=== PATIENT | male | born 1940 | race Caucasian/White ===

== ENCOUNTER 2017-04-09 07:02 | Day surgery (SDC) | payer MEDICARE ==
[~2017-04-09] VITALS: Ht 175.3 cm; Wt 88.5 kg
[~2017-04-09 07:02] MED LIST: AMLO10TA2 PO; AMLO5TAB2 PO; ANDROGEL TP; ASPI-515 PO; ASPI-621 PO; ATOR40TA PO; ATOR40TA78 PO; CEPH-368 PO; CHOL4PAC11 PO; CIPR500T87 PO; CLOP75TA22 PO; DOCU-30 PO; FEBU40TA PO; FURO-93 PO; HYDR-3144 PO; LEVO750T26 PO; LISI-167 PO; LISI-170 PO; LISI40TA PO; MELO-190 PO; METO25TA35 PO/NG; MULT-516 PO; OXYC-302 PO; POTA10TA11 PO; POTA20TA14 PO; TAMS-11 PO; TAMS0.4C2 PO; TEST1.25 TP; VERA80TA2 PO; VITAMIN D3
[2017-04-09] MEDS ORDERED: LACTATED RINGERS 1,000 ML IV SCH (07:44)
[2017-04-09 07:48] VITALS: BP 147/83
[2017-04-09] MEDS ORDERED: MIDAZOLAM 1 MG/ML, 2ML ONE (08:49)
[2017-04-09] MEDS ORDERED: FENTANYL PF 250 MCG/5ML ONE (08:49)
[2017-04-09] MEDS ORDERED: ONDANSETRON 2MG/ML, 2ML ONE (09:52)
[2017-04-09] MEDS ORDERED: DEXAMETHASONE 4 MG/ML, 1ML ONE (09:52)
[2017-04-09] MEDS ORDERED: CEFAZOLIN 1,000 MG ONE (09:52)
[2017-04-09] MEDS ORDERED: OMNIPAQUE 350 MG/ML, 50 ML BOTTLE IV ONE (10:12)
[2017-04-09] MEDS ORDERED: ONDANSETRON 2MG/ML, 2ML IVPush PRN (10:30)
[2017-04-09] MEDS ORDERED: HYDROmorphone 1 MG/ML, 1ML IV PRN (10:30)
[2017-04-09] MEDS ORDERED: LABETALOL 5MG/ML, 20ML IV PRN (10:30)
[2017-04-09] MEDS ORDERED: MEPERIDINE/PF 25MG/0.5ML IVPush PRN (10:30)
[2017-04-09] MEDS ORDERED: FENTANYL PF 100 MCG/2ML IV PRN (10:30)
[2017-04-09] MEDS ORDERED: ALBUTEROL/IPRATROPIUM 2.5MG/0.5MG, 3 ML NPPB PRN (10:30)
[2017-04-09] MEDS ORDERED: MIDAZOLAM 1 MG/ML, 2ML IV PRN (10:30)
[2017-04-09] MEDS ORDERED: ACETAMINOPHEN 325 MG TABLET PO PRN (10:30)
[2017-04-09] MEDS ORDERED: OXYcodone 5 MG/5 ML ORAL.SOL UDC PO PRN (10:30)
[2017-04-09] MEDS ORDERED: PHENAZOPYRIDINE 200 MG TABLET ONE (10:43)
[2017-04-09] MEDS ORDERED: OMNIPAQUE 350 MG/ML, 50 ML BOTTLE ONE (10:54)
[2017-04-09] MEDS ORDERED: PHENAZOPYRIDINE 200 MG TABLET PO ONE (11:00)
[2017-04-09] MEDS ORDERED: LISINOPRIL 20 MG TABLET PO ONE (12:00)
[2017-04-09] MEDS ORDERED: hydrALAzine 20 MG/ML, 1ML ONE (13:00)
[2017-04-09] MEDS ORDERED: hydrALAzine 20 MG/ML, 1ML IV ONE ×2 (13:00→14:00)
== END 2017-04-09 15:00 ==
LOC: OUT 07:02
PROVIDERS: ATTEND Urology
DX: Z85.528 Personal history of other malignant neoplasm of kidney (principal); I12.9 Hypertensive chronic kidney disease with stage 1 through stage 4 chronic kidney disease, or unspecified chronic kidney disease; N18.9 Chronic kidney disease, unspecified; N40.0 Benign prostatic hyperplasia without lower urinary tract symptoms; I25.10 Atherosclerotic heart disease of native coronary artery without angina pectoris; Z85.54 Personal history of malignant neoplasm of ureter; Z95.1 Presence of aortocoronary bypass graft; Z98.890 Other specified postprocedural states; Z88.1 Allergy status to other antibiotic agents; Z88.0 Allergy status to penicillin; Z88.8 Allergy status to other drugs, medicaments and biological substances
CPT/HCPCS: 52005; 74420; C1769; J0360; J0690; J1100; J2405; J3010; J7120; Q9967; J2250

== ENCOUNTER → 2017-10-28 | Outpatient (CLI) | payer MEDICARE ==
[~2017-10-28] MED LIST changes: +CARV6.2512 PO; -CLOP75TA22 PO; +CLOP75TA52 PO; +DOCU-131 PO; -DOCU-30 PO; -HYDR-3144 PO; +HYDR-3245 PO; -MELO-190 PO; +MELO7.5T31 PO
== END | disposition home or self-care (01) ==
LOC: CFH 13:31
PROVIDERS: ATTEND Urology
DX: N26.1 Atrophy of kidney (terminal) (principal); N28.1 Cyst of kidney, acquired; I51.7 Cardiomegaly; Z85.528 Personal history of other malignant neoplasm of kidney
CPT/HCPCS: 71046; 76770

== ENCOUNTER → 2018-04-15 | Outpatient (CLI) | payer MEDICARE | END | disposition home or self-care (01) | LOC: CFH 16:29 | PROVIDERS: ATTEND Urology | DX: C66.2 Malignant neoplasm of left ureter (principal); C67.8 Malignant neoplasm of overlapping sites of bladder; C64.9 Malignant neoplasm of unspecified kidney, except renal pelvis; M51.34 Other intervertebral disc degeneration, thoracic region; N28.1 Cyst of kidney, acquired; N32.89 Other specified disorders of bladder | CPT/HCPCS: 71046; 76770 ==

== ENCOUNTER → 2018-09-23 | Outpatient (CLI) | payer MEDICARE ==
[~2018-09-23] MED LIST changes: +AMLO-150 PO; -AMLO10TA2 PO; +AMLO10TA6 PO; -AMLO5TAB2 PO; -ASPI-621 PO; +ASPI81TA45 PO
== END | disposition home or self-care (01) ==
LOC: CFH 10:36
PROVIDERS: ATTEND Internal Medicine Cardiovascular Disease
DX: I08.1 Rheumatic disorders of both mitral and tricuspid valves (principal); I10 Essential (primary) hypertension; I25.10 Atherosclerotic heart disease of native coronary artery without angina pectoris; E78.5 Hyperlipidemia, unspecified; I25.2 Old myocardial infarction; Z95.1 Presence of aortocoronary bypass graft
CPT/HCPCS: 78452; 93017; 93306; A9502

== ENCOUNTER → 2019-01-27 | Outpatient (CLI) | payer MEDICARE ==
[~2019-01-27] MED LIST changes: -AMLO10TA6 PO; +AMLO10TA8 PO
== END | disposition home or self-care (01) ==
LOC: ROC 08:08
PROVIDERS: ATTEND Radiology Radiation Oncology
DX: Z08 Encounter for follow-up examination after completed treatment for malignant neoplasm (principal); C68.0 Malignant neoplasm of urethra; C61 Malignant neoplasm of prostate; D35.2 Benign neoplasm of pituitary gland
CPT/HCPCS: G0463

== ENCOUNTER 2019-04-13 15:00 | Outpatient (CLI) | payer MEDICARE | END 2019-04-13 23:59 | disposition home or self-care (01) | LOC: CFH 15:00 | PROVIDERS: ATTEND Urology | DX: N28.1 Cyst of kidney, acquired (principal); J98.4 Other disorders of lung; K86.2 Cyst of pancreas; Z85.528 Personal history of other malignant neoplasm of kidney; Z95.1 Presence of aortocoronary bypass graft | CPT/HCPCS: 71046; 74181 ==

== ENCOUNTER 2019-09-23 13:04 | Emergency (ER) | payer MEDICARE ==
[~2019-09-23] VITALS: Ht 172.7 cm; Wt 93.0 kg
--- NOTE | 2019-09-23 14:18 | NUR ---
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
[2019-09-23 14:57] LABS: BASOPHILS % (AUTO) 1 % (0-1); EOSINOPHILS # (AUTO) 0.51 x10^3/uL (0-0.4); EOSINOPHILS % (AUTO) 7 % (1-7); LYMPHOCYTES # (AUTO) 1.13 x10^3/uL (1-3.4); LYMPHOCYTES % (AUTO) 15 % (22-44); MD NO; MEAN CORPUSCULAR HGB CONC 33.1 g/dL (33.2-36.2); MEAN CORPUSCULAR VOLUME 96.4 fL (81-97); MONOCYTES # (AUTO) 0.64 x10^3/uL (0.2-0.8); MONOCYTES % (AUTO) 9 % (2-9); NEUTROPHILS # (AUTO) 5.04 x10^3/uL (1.8-6.8); NEUTROPHILS % (AUTO) 68 % (42-75); PLATELET COUNT 295 x10^3/uL (130-400); RED BLOOD COUNT 4.56 x10^6/uL (4.38-5.82); RED CELL DISTRIBUTION WIDTH 13.4 % (9.4-14.8)
--- NOTE | 2019-09-23 15:00 | NUR ---
PT TO ROOM 34. DOES NOT HAVE ANY COMPLAINTS. STATES HE WAS CALLED BY HIS PCP DR. DOMINGUEZ TO COME TO ED. PT HAD LAB WORK DONE ON FRIDAY AND WAS TOLD TO COME TO ED FOR HIGH K+ OF 10.0, HIGH GLUCOSE, AND HIGH BUN/CREATINE LEVELS. PT DENIES CP/SOB/PALPITATIONS. PT RESTING ON GURNEY. NADN. MONITORS APPLIED.
[2019-09-23 15:06] VITALS: BP 171/87
[2019-09-23 15:09] LABS: ALBUMIN 4.1 g/dL (3.4-5.0); ANION GAP 8 mmol/L (5-15); CALCIUM 9.2 mg/dL (8.5-10.1); CHLORIDE 108 mmol/L (98-107); CREATININE 1.71 mg/dL (0.7-1.3)
--- NOTE | 2019-09-23 15:15 | NUR ---
[facility] RPT REC'D FROM [facility] AND PT CARE ASSUMED. LAB RESULTS POSTED AND CHART UP FOR RECHECK
--- NOTE | 2019-09-23 15:44 | NUR ---
Patient/Caregiver given discharge instructions and they have confirmed that they understand the instructions. Patient ambulatory with steady gait.
== END 2019-09-23 15:45 ==
LOC: ED 15:39
DX: R73.09 Other abnormal glucose (principal); E87.6 Hypokalemia; I10 Essential (primary) hypertension; E78.00 Pure hypercholesterolemia, unspecified; Z00.00 Encounter for general adult medical examination without abnormal findings
CPT/HCPCS: 36415; 80048; 82040; 85025; 93005; 99284

== ENCOUNTER 2019-10-12 14:30 | Outpatient (CLI) | payer MEDICARE ==
[~2019-10-12 14:30] MED LIST changes: -VERA80TA2 PO; +VERA80TA25 PO
== END 2019-10-12 23:59 | disposition home or self-care (01) ==
LOC: CVU 14:30
PROVIDERS: ATTEND Internal Medicine Cardiovascular Disease
DX: I08.8 Other rheumatic multiple valve diseases (principal); I25.5 Ischemic cardiomyopathy; I10 Essential (primary) hypertension; E78.5 Hyperlipidemia, unspecified; I25.2 Old myocardial infarction; Z95.1 Presence of aortocoronary bypass graft
CPT/HCPCS: 93306

== ENCOUNTER → 2020-08-29 | Outpatient (CLI) | payer MEDICARE ==
[~2020-08-29] MED LIST changes: +AMLO-211 PO; -AMLO10TA8 PO
== END | disposition home or self-care (01) ==
LOC: CFH 13:23
PROVIDERS: ATTEND Internal Medicine Cardiovascular Disease
DX: I08.8 Other rheumatic multiple valve diseases (principal); I25.10 Atherosclerotic heart disease of native coronary artery without angina pectoris; I25.5 Ischemic cardiomyopathy; I11.9 Hypertensive heart disease without heart failure
CPT/HCPCS: 93306

== ENCOUNTER → 2021-03-06 | Outpatient (CLI) | payer MEDICARE ==
[~2021-03-06] MED LIST changes: -ASPI-515 PO; +ASPI-963 PO; -HYDR-3245 PO; +HYDR1TAB53 PO; -LISI40TA PO; +LISI40TA9 PO; -OXYC-302 PO; +OXYC1TAB14 PO
== END | disposition home or self-care (01) ==
LOC: CFH 11:55
PROVIDERS: ATTEND Physician Assistant
DX: I21.19 ST elevation (STEMI) myocardial infarction involving other coronary artery of inferior wall (principal); I10 Essential (primary) hypertension; I25.10 Atherosclerotic heart disease of native coronary artery without angina pectoris
CPT/HCPCS: 78452; 93017; A9502

== ENCOUNTER 2021-03-15 09:45 | Observation (INO) | payer MEDICARE ==
[~2021-03-15] VITALS: Ht 174 cm; Wt 84.9 kg
[2021-03-15] MEDS ORDERED: COLE1TAB5 PO (10:21)
[2021-03-15] MEDS ORDERED: OXYB5TAB10 PO (10:21)
[2021-03-15] MEDS ORDERED: NITR0.6T4 SL (10:21)
[2021-03-15] MEDS ORDERED: L.AC1CAP6 PO (10:21)
[2021-03-15] MEDS ORDERED: TAMS-11 PO (10:21)
[2021-03-15 10:26] VITALS: BP 151/70
[2021-03-15] MEDS ORDERED: VANCOMYCIN PMX 1GM/200ML 200 ML IVPB SCH (10:30)
[2021-03-15] MEDS ORDERED: PLEASE ENTER HEIGHT AND WEIGHT MC SCH (10:30)
[2021-03-15] MEDS: SODIUM CHLORIDE 0.9% 1,000 ML IV SCH ×2 (10:30→15:44)
[2021-03-15 10:36] LABS: BASOPHILS % (AUTO) 2 % (0-1); EOSINOPHILS % (AUTO) 5 % (1-7); LYMPHOCYTES % (AUTO) 13 % (22-44); MEAN CORPUSCULAR HEMOGLOBIN 31.6 pg (27.5-34.5); MEAN CORPUSCULAR HGB CONC 34.2 g/dL (33.2-36.2); MEAN PLATELET VOLUME 8.1 fL (7.4-10.4); MONOCYTES % (AUTO) 8 % (2-9); NEUTROPHILS % (AUTO) 73 % (42-75); PLATELET COUNT 272 x10^3/uL (130-400); RED BLOOD COUNT 4.61 x10^6/uL (4.38-5.82); RED CELL DISTRIBUTION WIDTH 14.5 % (9.4-14.8)
[2021-03-15 10:43] LABS: ANION GAP 9 mmol/L (5-15); CALCIUM 8.8 mg/dL (8.5-10.1); CHLORIDE 111 mmol/L (98-107)
[2021-03-15 10:44] LABS: INTERNATIONAL NORMALIZED RATIO 1.4 (0.93-1.1); PROTHROMBIN TIME 14.9 Seconds (9.6-11.5)
[2021-03-15] MEDS ORDERED: MIDAZOLAM 1 MG/ML, 5ML ONE (14:00)
[2021-03-15] MEDS ORDERED: FENTANYL PF 100 MCG/2ML ONE (14:00)
[2021-03-15] MEDS ORDERED: VANCOMYCIN 500 MG ONE (14:00)
[2021-03-15] MEDS ORDERED: LIDOCAINE 1%, 20ML ONE (14:01)
[2021-03-15] MEDS ORDERED: NITROGLYCERIN 0.4 MG BOTTLE (25 TABS) SL PRN (15:30)
[2021-03-15] MEDS ORDERED: ZOLPIDEM 5MG TABLET PO PRN (15:30)
[2021-03-15] MEDS ORDERED: HOLD MEDICATION MC PRN (15:30)
[2021-03-15] MEDS ORDERED: ONDANSETRON 2MG/ML, 2ML IV PRN (15:30)
[2021-03-15] MEDS ORDERED: HYDROcodone/APAP 5/325 TABLET PO PRN (15:30)
[2021-03-15 19:48] VITALS: BP 159/72
[2021-03-15] MEDS ORDERED: ATORVASTATIN 40 MG TABLET PO SCH (21:00)
[2021-03-15] MEDS: SODIUM CHLORIDE FLUSH 10ML SYR IVF SCH (21:00)
[2021-03-15] MEDS: AMLODIPINE 5 MG TABLET PO SCH (21:11)
[2021-03-15] MEDS: OXYBUTYNIN CHLORIDE 5 MG TABLET PO SCH ×2 (22:09→22:15)
[2021-03-15] MEDS: COLESTIPOL 1 GM TABLET PO SCH (22:16)
[2021-03-16] MEDS ORDERED: VANCOMYCIN 1,000 MG in SODIUM CHLORIDE 0.9% 100 ML IVPB ONE ×2
[2021-03-16 00:31] VITALS: BP 156/82
[2021-03-16 06:49] VITALS: BP 165/86
[2021-03-16] MEDS: COLESTIPOL 1 GM TABLET PO SCH ×2 (08:17→09:28)
[2021-03-16] MEDS: SODIUM CHLORIDE FLUSH 10ML SYR IVF SCH (08:17)
[2021-03-16] MEDS: AMLODIPINE 5 MG TABLET PO SCH (08:18)
[2021-03-16] MEDS: OXYBUTYNIN CHLORIDE 5 MG TABLET PO SCH (08:21)
[2021-03-16] MEDS: TAMSULOSIN 0.4 MG CAP.ER.24H PO SCH ×2 (08:26→08:27)
[2021-03-16] MEDS ORDERED: FEBUXOSTAT 40 MG TABLET PO SCH (09:00)
[2021-03-16] MEDS ORDERED: LISINOPRIL 40 MG TABLET PO SCH (09:00)
[2021-03-16] MEDS ORDERED: ASPIRIN 81 MG TABLET EC PO SCH (09:00)
[2021-03-16 09:30] VITALS: BP 145/67
[2021-03-16] MEDS ORDERED: ACET325T26 PO (10:38)
== END 2021-03-16 11:52 | disposition home or self-care (01) ==
LOC: CACL 09:45 → 5SO 15:06 → CACL 15:47 → DCLOUNGE 03-16 11:46
PROVIDERS: ADMIT Internal Medicine Cardiovascular Disease; ATTEND Internal Medicine Cardiovascular Disease
DX: I49.5 Sick sinus syndrome (principal); I44.1 Atrioventricular block, second degree; I25.10 Atherosclerotic heart disease of native coronary artery without angina pectoris; I25.5 Ischemic cardiomyopathy; I12.9 Hypertensive chronic kidney disease with stage 1 through stage 4 chronic kidney disease, or unspecified chronic kidney disease; N18.30 Chronic kidney disease, stage 3 unspecified; E78.5 Hyperlipidemia, unspecified; R60.9 Edema, unspecified; K21.9 Gastro-esophageal reflux disease without esophagitis; E78.2 Mixed hyperlipidemia; Z95.1 Presence of aortocoronary bypass graft; Z79.82 Long term (current) use of aspirin; Z79.899 Other long term (current) drug therapy; Z88.0 Allergy status to penicillin
CPT/HCPCS: 33208; 36415; 71045; 71046; 80048; 85025; 85610; 96365; 99156; 99157; C1779; C1785; C1892; G0378; J2250; J3010; J3370; J3490

== ENCOUNTER → 2021-03-23 | Outpatient (CLI) | payer MEDICARE ==
[~2021-03-23] MED LIST changes: +ACET325T26 PO; +COLE1TAB5 PO; +L.AC1CAP6 PO; +NITR0.6T4 SL; +OXYB5TAB10 PO
== END | disposition home or self-care (01) ==
LOC: RAD 12:32
PROVIDERS: ATTEND Physician Assistant
DX: N28.1 Cyst of kidney, acquired (principal); Z85.51 Personal history of malignant neoplasm of bladder
CPT/HCPCS: 74176

== ENCOUNTER → 2021-06-26 | Outpatient (CLI) | payer MEDICARE ==
[~2021-06-26] MED LIST changes: +OXYC1TAB12 PO; -OXYC1TAB14 PO
== END | disposition home or self-care (01) ==
LOC: WOUND 13:21
PROVIDERS: ATTEND Nurse Practitioner Family
DX: L89.156 Pressure-induced deep tissue damage of sacral region (principal); F41.9 Anxiety disorder, unspecified; K58.9 Irritable bowel syndrome, unspecified; I10 Essential (primary) hypertension; Z95.0 Presence of cardiac pacemaker; Z95.1 Presence of aortocoronary bypass graft; Z85.46 Personal history of malignant neoplasm of prostate; Z85.528 Personal history of other malignant neoplasm of kidney; Z85.54 Personal history of malignant neoplasm of ureter; Z87.891 Personal history of nicotine dependence; Z88.0 Allergy status to penicillin
CPT/HCPCS: 97597; G0463

== ENCOUNTER → 2021-07-03 | Outpatient (CLI) | payer MEDICARE | END | disposition home or self-care (01) | LOC: WOUND 14:27 | PROVIDERS: ATTEND Nurse Practitioner Family | DX: L89.156 Pressure-induced deep tissue damage of sacral region (principal); F41.9 Anxiety disorder, unspecified; K58.9 Irritable bowel syndrome, unspecified; I10 Essential (primary) hypertension; Z95.0 Presence of cardiac pacemaker; Z95.1 Presence of aortocoronary bypass graft; Z85.46 Personal history of malignant neoplasm of prostate; Z85.528 Personal history of other malignant neoplasm of kidney; Z85.54 Personal history of malignant neoplasm of ureter; Z87.891 Personal history of nicotine dependence; Z88.0 Allergy status to penicillin ==